=== PATIENT | male | born 1950 | race Caucasian/White ===

== ENCOUNTER 2024-08-31 07:35 | Emergency (ER) | payer MEDICARE, OTHER, SELFPAY ==
[2024-08-31] VITALS (12 sets, daily range): BP systolic 145–162; BP diastolic 56–89; PULSE 76–83; BMI 25.4
--- NOTE | 2024-08-31 07:57 | ED.GENMED ---
History of Present Illness
General
Chief Complaint: Blood Pressure Problem
Source: patient
Exam Limitations: none
Time Seen by Provider: 08/31/24 07:51
Nursing documentation reviewed up to this point in time: agreed with
History of Present Illness
History of Present Illness:
Patient is a 74-year-old male with history of hypertension, Parkinson's [id number] diabetes presents to the ER for evaluation of elevated blood pressure. Patient has a history of elevated blood pressure and was on Norvasc 10 mg over 6
months ago he was decreased to 5 mg because his blood pressure was going low at the time. Patient reports over the past couple weeks he has had some dizzy spells where he feels lightheaded .
He recently got a new BP monitor recently and took his blood pressure last night and this morning it was elevated 170s over 101. He did wake up with a headache this morning and took Excedrin. He did not take his blood pressure medicine yet this
morning. He denies any associated chest pain shortness of breath. He is not on blood thinners.
Past History
Past History
ED Past Medical History: HTN and Other (Colonic polyps)
ED Past Surgical History: None
Social History
Tobacco: Non-smoker
Personal:
Living: with family
Family History
Family History: Negative Early CAD
Review of Systems
Review of Systems
Allergies reviewed?: Yes
Other source history: family
All Other Systems: ROS reviewed and negative except as documented in HPI and ROS
Constitutional: Reports no symptoms
Respiratory: Reports no symptoms
Cardiac: Reports no symptoms
ABD/GI: Reports no symptoms; Denies abdominal pain or nausea
: Reports no symptoms
Musculoskeletal: Reports no symptoms
Skin: Reports no symptoms
Neurological: Reports headache
Hematologic/Lymphatic: Reports no symptoms
Psychiatric: Reports no symptoms
Phy Exam
General Physical Exam
General Presentation: well appearing
General age: appears stated age
General Skin: warm and dry
General Habitus: normal
General Mental: alert
General Hydration: appears well hydrated
Eye Exam
Eye Exam: PERRL and EOMI
Eye Exam General: PERRL: bilateral and EOM intact: bilateral
Pupil Exam: Bilateral: round and reactive
Cardiovascular Exam
Cardiovascular Exam: regular rate/rhythm, no murmur and normal peripheral pulses
Pulmonary Exam
Pulmonary Exam: lungs clear and no respiratory distress
Neurological Exam
Neurological Exam: alert and oriented x3
Musculoskeletal Exam
Musculoskeletal Exam: full ROM
Skin Exam
Skin Exam: normal color and warm/dry
Psychiatric Exam
Psychiatric Exam: normal mood/affect
Course
Orders/Labs/Results
Orders:
Orders
08/31/24 08:05
Complete Blood Count/With Diff Urgent
Comprehensive Metabolic Panel Urgent
TSH Reflex To Free T4 Urgent
Troponin I Urgent
08/31/24 08:14
CT Head W/o Iv Contrast Urgent
Comment:
Reason For Exam: headache /elevated bp /dizzy
08/31/24 08:15
Amlodipine [Norvasc] 10 mg PO NOW STA
08/31/24 09:43
Electrocardiogram (*1) Stat
Reason for Study: Other
Other Reason for Exam: chest pain
EKG- Treatment ONCE
Abnormal Lab Results
08/31/24
08:05
Glucose 187 H mg/dl
(70-99)
08/31/24 08:05
08/31/24 08:05
Vital Signs
Initial and Last Documented VS:
Initial Vital Signs
Temp Pulse Resp BP Pulse Ox
97.7 F 75 18 156/81 100
08/31/24 07:42 08/31/24 07:42 08/31/24 07:42 08/31/24 07:42 08/31/24 07:42
Last Documented Vital Signs
Temp Pulse Resp BP Pulse Ox
98.5 F 73 20 145/89 99
08/31/24 08:07 08/31/24 08:29 08/31/24 08:07 08/31/24 08:29 08/31/24 08:07
MDM/Problems Addressed
Differential Diagnosis Includes:
Not limited to hypertension less likely intracranial hemorrhage
MDM/Problems Addressed:
Patient is a 74-year-old male who presents to the ER for evaluation of elevated blood pressure. He does have a history of elevated blood pressure and was on Norvasc 10 mg however that was decreased several months ago to 5 mg. Over the past 2 weeks
he has felt intermittently dizzy and lightheaded and today took his blood pressure multiple times and it was elevated. He recently got a blood pressure monitor prior to today he really was not taking his blood pressure much. He presents awake
alert no acute distress. He did have a headache today. CT head negative. Patient presents awake alert no acute distress normal labs including normal kidney function no acute findings on EKG. his blood sugar was mildly elevated however he is a
diabetic and takes Janumet patient did not take his amlodipine today was given 10 mg of amlodipine here in the ER. Patient has no complaints of chest pain shortness of breath no visual changes.
Will plan to discharge home will have patient increase back to his 10 mg dose of Norvasc daily however with close outpatient have a family doctor the next several days for reevaluation
Chronic conditions affecting care:
htn
*Radiology
Radiology exam reviewed: radiology read reviewed
*Pulse Oximetry
Patient hypoxic: no
*Critical Care Note
Total Time (30-74mins, 75-104mins- exclusive of procedures): Not Applicable
ED Attending Note
-
Portions of this chart may have been created with voice recognition software.� Occasional wrong word or��sound alike� substitutions may have occurred due to the inherent limitations of voice recognition software.
Discharge Plan
Departure
Patient Disposition: Home (Routine Discharge)
Date of Disposition: 08/31/24
Time of Disposition: 09:58
Patient with high blood pressure during this ER visit?: Yes
Condition: Fair
Covid-19: Not Applicable
Discharge Problem:
elevated blood presure
Instructions: High Blood Pressure (DC), BLOOD PRESSURE
Prescriptions:
No Action
amlodipine 10 MG tablet
5 mg PO DAILY
Quique Multivitamin For Men 1 EACH tablet
1 ea PO DAILY
Referrals:
UNKNOWN - PT DOES,NOT KNOW [Family Provider] -
Activity Restrictions/Additional Instructions:
As discussed increase your amlodipine back to 10 mg/day. Please call your family doctor Monday to make an appointment for reevaluation of your blood pressure this week. Return if any worsening of symptoms.
As discussed follow a low-sodium diet.
Interventions
Interventions:
*Risk Screen - Suicide Last Done: 08/31/24 07:45
*General Assessment Last Done: 08/31/24 07:45
*Neglect/Abuse Screening Last Done: 08/31/24 07:45
ED- Fall Risk Assessment Last Done: 08/31/24 08:07
*ED COVID-19 Vaccine History Last Done: 08/31/24 08:07
ED- Cardiac Assessment Last Done: 08/31/24 08:07
ED- Neurological Assessment Last Done: 08/31/24 08:07
ED- Pulmonary Assessment Last Done: 08/31/24 08:07
Discharge Date and Time
Print Language: MALTESE
--- NOTE | 2024-08-31 08:07 | EDRN ---
Ashleigh Da Silva [employer] currently at the pts bedside
[2024-08-31 08:11] LABS: % Basophils 0.8 % (0-2); % Immature Granulocytes 0.5 % (0-0.5); % Lymphocytes 22.3 % (20.5-51.1); % Monocytes 6.2 % (1.7-9.3); % Neutrophils 69.2 % (42.2-75.2); Absolute Basophils 0.1 10^3/uL (0-0.2); Absolute Eosinophils 0.1 10^3/uL (0-0.7); Absolute Lymphocytes 1.9 10^3/uL (1.2-3.4); Absolute Monocytes 0.5 10^3/uL (0.1-0.6); Hematocrit 43.7 % (39.0-52.0); Hemoglobin 15.6 g/dL (13.0-18.0); Mean Corp Hgb Conc. 35.7 g/dL (33.0-37.0); Mean Corpuscular Hgb 29.3 pg (27.0-31.0); Nucleated Red Blood Cells % 0 % (-); Platelet Count 230 10^3/uL (130-400); Red Blood Cell Count 5.33 10^6/uL (4.70-6.10); Red Cell Dist. Width 12.5 % (11.5-14.5); White Blood Cell Count 8.7 10^3/uL (4.8-10.8)
[2024-08-31] MEDS: NORVASC 10 MG PO (08:29)
[2024-08-31 08:42] LABS: ALT (SGPT) 20 U/L (0-50); AST (SGOT) 20 U/L (17-59); Albumin 4.7 g/dl (3.5-5.0); Alkaline Phosphatase 68 U/L (38-126); Blood Urea Nitrogen 14 mg/dl (9-20); Calcium 9.4 mg/dl (8.4-10.2); Carbon Dioxide 26 mmol/L (22-30); Chloride 104 mmol/L (98-107); Estimated Creatinine Clearance 66 ml/min; Glucose 187 mg/dl (70-99); Potassium 4.2 mmol/L (3.5-5.1); Sodium 143 mmol/L (135-145); Total Bilirubin 0.9 mg/dl (0.2-1.3); eGFR > 60.00
[2024-08-31 08:47] LABS: Troponin I < 0.012 ng/ml
[2024-08-31 09:12] LABS: TSH Reflex To Free T4 1.35 uIU/ml (0.47-4.68)
== END 2024-08-31 10:10 | disposition home or self-care (01) ==
LOC: EMR 07:35
PROVIDERS: Nurse Practitioner; EMERGENCY PHYSICIAN Emergency Medicine
DX: I10 Essential (primary) hypertension (principal); R42 Dizziness and giddiness; R51.9 Headache, unspecified; E11.9 Type 2 diabetes mellitus without complications; G20.A1 Parkinson's disease without dyskinesia, without mention of fluctuations; M19.90 Unspecified osteoarthritis, unspecified site; Z79.899 Other long term (current) drug therapy; Z86.0100 Personal history of colon polyps, unspecified
CPT/HCPCS: 99285; 70450; 80053; 84443; 84484; 85025; 93005